=== PATIENT | female | born 1975 | race Caucasian/White ===

== ENCOUNTER 2016-04-08 12:47 | Emergency (ER) | payer OTHER | END 2016-04-08 15:42 | disposition home or self-care (01) | LOC: ED 12:47 | DX: M54.5 Low back pain (principal); F17.210 Nicotine dependence, cigarettes, uncomplicated; W20.8XXA Other cause of strike by thrown, projected or falling object, initial encounter; Y93.89 Activity, other specified; Y92.512 Supermarket, store or market as the place of occurrence of the external cause ==

== ENCOUNTER 2016-05-29 16:15 | Emergency (ER) | payer OTHER ==
[2016-05-29] MEDS ORDERED: IOPAMIDOL 370 (76%) IV.SOLN 150 ML IV ONE (16:16)
[2016-05-29] MEDS ORDERED: LACTATED RINGERS 1,000 ML ONE (17:35)
[2016-05-29] MEDS ORDERED: KETOROLAC TROMETHAMINE 30 MG/ML 1 ML VIAL ONE (17:35)
[2016-05-29] MEDS ORDERED: PROMETHAZINE HCL 25 MG/ML VIAL ONE (17:35)
[2016-05-29] MEDS ORDERED: DIPHENHYDRAMINE HCL 50 MG/1 ML VIAL ONE (17:35)
[2016-05-29 17:47] LABS: ABSOLUTE NEUTROPHIL COUNT 2.9 K/mm3 (1.8-7.7); BASO # 0.1 K/mm3 (0.0-0.2); BASO % 0.8 % (0.2-1.0); EOS # 0.2 (0.0-0.5); EOS % 3.2 % (0.9-2.9); HEMATOCRIT 39.5 % (37.0-47.0); HEMOGLOBIN 13.7 gm/l (12.0-16.0); IMM NEUT% 0.2 % (0-1); LYMPH # 2.8 (1.0-4.8); LYMPH % 43.1 % (15-45); MEAN CELL VOLUME 92.7 fl (81.0-99.0); MEAN CORPUSCULAR HEMOGLOBIN 32.2 pg (27.0-31.0); MEAN CORPUSCULAR HGB CONC 34.7 g/dl (33.0-37.0); MEAN PLATELET VOLUME 9.1 fl (7.4-10.4); MONO # 0.5 (0.0-0.8); MONO % 7.7 % (4-12); PLATELET COUNT 262 K/mm3 (130-400); RED CELL DISTRIBUTION WIDTH 12.4 % (11.5-14.5)
[2016-05-29] MEDS ORDERED: LORAZEPAM 2 MG/ML 1ML SDV ONE (18:01)
[2016-05-29 18:03] LABS: ALB/GLOB RATIO 1.8 (>1.0); ALBUMIN 4.2 gm/dL (3.5-5.7); CALCIUM 9.4 mg/dL (8.6-10.3)
--- NOTE | 2016-05-29 18:53 | CT ---
CTA HEAD W/ POST PROCESS, HEAD W/O CON: 05/29/2016 5:14 PM CLINICAL HISTORY: Left-sided headache with exam. COMPARISON: None. TECHNIQUE: Contiguous axial 5 mm images from skull base to the vertex were obtained without IV contrast. Sagittal and coronal reformations with bone algorithm images were also obtained at this time. DLP: 1347.6 FINDINGS: Infarct: None Extra axial spaces: Normal in size and morphology for the patient's age. Hemorrhage: None. Ventricular system: Normal in size and morphology for the patient's age. Basal cisterns: Normal. Cerebral parenchyma: Probable perivascular spaces noted in the left basal ganglia region. Differential considerations would include lacunar type infarction though given the patient's age this is thought to be less likely.. Midline shift: None. Cerebellum: Normal. Brainstem: Normal. OTHER: Calvarium: Normal. Vascular system: Normal. Visualized Paranasal sinuses and Mastoid air cells: Clear. Visualized Orbits and regional soft tissues: Normal. CTA: No aneurysm, dissection, occlusion or stenosis. 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 No arterial enhancing lesion. IMPRESSION: No acute intracranial process. No vascular abnormality. Findings were called to Dr. Arguello at approximately 1844 hours on 05/29/2016.
== END 2016-05-29 19:36 | disposition home or self-care (01) ==
LOC: ED 16:15
DX: R51 Headache (principal); F17.210 Nicotine dependence, cigarettes, uncomplicated; Z79.899 Other long term (current) drug therapy; R00.0 Tachycardia, unspecified; Z79.82 Long term (current) use of aspirin; Z79.891 Long term (current) use of opiate analgesic; Z88.1 Allergy status to other antibiotic agents; Z88.5 Allergy status to narcotic agent; Z88.8 Allergy status to other drugs, medicaments and biological substances
CPT/HCPCS: 85025; 80053; 70450; 70496; 96375 ×3; 99284 ×2; 96374; J2060; J1200; J2550; J1885; J7120; Q9967